=== PATIENT | female | born 1980 | race Caucasian/White ===

== ENCOUNTER 2020-12-22 09:36 | Emergency (ER) | payer MEDICAID ==
[~2020-12-22] VITALS: Ht 154.9 cm; Wt 49.9 kg
[~2020-12-22 09:36] MED LIST: PRENATAL MEDS
[2020-12-22 10:05] VITALS: BP 144/84
--- NOTE | 2020-12-22 14:00 | NUR ---
Pt discharged by RADHA Cheek.
[2020-12-22] MEDS ORDERED: NAPR-54 PO (14:08)
== END 2020-12-22 14:00 | disposition home or self-care (01) ==
LOC: MED 09:36
DX: G56.02 Carpal tunnel syndrome, left upper limb (principal); R10.9 Unspecified abdominal pain; Z79.899 Other long term (current) drug therapy
CPT/HCPCS: 81002; 81025; 93005; 99283